=== PATIENT | male | born 1945 | race Hispanic/Latino ===

== ENCOUNTER → 2018-04-26 | Emergency (ER) | payer MEDICARE, MEDICAID ==
[~2018-04-26] MED LIST: Ondansetron PF 4 MG/2 ML Vial ONE; Sodium Chloride 0.9% 100 ML ONE; cefTRIAXone\\ROCEPHIN 2 GM VIAL ONE
[2018-04-26 17:49] LABS: #Basophils 0.1 thou/uL (0.0-0.2); #Eosinphils 0.1 thou/uL (0.0-0.7); #Lymphocytes 1.4 thou/uL (1.20-3.40); #Monocytes 0.6 thou/uL (0.11-0.59); #Neutrophils 12.7 thou/uL (1.40-6.50); %Basophils 0.4 % (0.0-1.0); %Eosinophils 0.6 % (0.0-10.0); %Lymphocytes 9.5 % (21.0-51.0); %Monocytes 4.3 % (0.0-10.0); %Neutrophils 85.2 % (42.0-75.0); Hemoglobin 11.8 g/dL (14.0-18.0); Mean Corpuscular HGB CONC 32.1 g/dL (32.0-36.0); Mean Corpuscular Hemoglobin 28.1 pg (27.0-31.0); Mean Corpuscular Volume 87.3 fL (78.0-98.0); Mean Platelet Volume 7.4 fL (7.4-10.4); Platelet Count 372 thou/uL (130-400); RBC Distribution Width 15.5 % (11.5-14.5); Red Blood Cell (RBC) Count 4.22 mill/uL (4.70-6.10); White Blood Cell (WBC) Count 14.9 thou/uL (4.8-10.8)
[2018-04-26 18:08] LABS: ALT (SGPT) 243 U/L (8-55); AST (SGOT) 413 U/L (5-34); Albumin 2.5 g/dL (3.4-4.8); Alkaline Phosphatase 1579 U/L (40-150); Anion Gap 19 mmol/L (10-20); BUN (Urea Nitrogen) 72 mg/dL (8.4-25.7); Bilirubin, Total 17.1 mg/dL (0.2-1.2); Calc. Creatinine Clearance 0 mL/min (70-130); Calcium 8.1 mg/dL (7.8-10.44); Carbon Dioxide 16 mmol/L (23-31); Chloride 105 mmol/L (98-107); Estimated GFR-MDRD 25; Glucose 111 mg/dL (83-110); Lipase 132 U/L (8-78); Potassium 4.1 mmol/L (3.5-5.1); Protein, Total 6.5 g/dL (5.8-8.1); Sodium 136 mmol/L (136-145)
[2018-04-26 18:17] LABS: INR-International Normal Ratio 1.3; PTT 37.7 SEC (22.9-36.1); Prothrombin Time 16.5 SEC (12.0-14.7)
--- NOTE | 2018-04-26 20:03 | RAD ---
PORTABLE CHEST 04/26/18 An AP portable film at 1738 is presented with no prior films available for comparison. The heart is mildly enlarged but there are no congestive changes or large pleural effusions. Infiltra tive changes are seen in the right base, and though it is not seen well on this portable film, the fi ndings seem real and suggest a developing pneumonia here. The lung apices are clear. the trachea is m idline. IMPRESSION: Right basilar infiltrate, presumably developing pneumonia. POS: HOME
== END ==
LOC: BURERS 17:20
DX: K76.9 Liver disease, unspecified (principal); D72.829 Elevated white blood cell count, unspecified; N28.9 Disorder of kidney and ureter, unspecified; Z87.891 Personal history of nicotine dependence
CPT/HCPCS: 71045; 80053; 83605; 83690; 83880; 84484; 85025; 85610; 85730; 87040; 93005; 94760; 96361; 96365; 96375; J0696; J2405; J7050